=== PATIENT | male | born 1960 | race Two or more races ===

== ENCOUNTER 2018-10-30 18:08 | Emergency (ER) | payer SELFPAY ==
[~2018-10-30] VITALS: Ht 162.6 cm; Wt 80.7 kg
[2018-10-30 18:30] VITALS: BP 129/68
[2018-10-30] MEDS ORDERED: LIDOCAINE W/ EPINEPHRINE 1 % INJ 30ML ONE (20:57)
[2018-10-30] MEDS ORDERED: cefTRIAXone SOD 1,000 MG VL IM ONE (21:15)
[2018-10-30] MEDS ORDERED: ACETAMINOPHEN/CODEINE#3 (300/30mg) TAB PO ONE (21:15)
[2018-10-30] MEDS ORDERED: TETANUS-DIPTH-ACEL PERTUSSIS 0.5ML SYRG IM ONE (21:15)
== END 2018-10-30 21:28 | disposition home or self-care (01) ==
LOC: ER 18:08
DX: S01.81XA Laceration without foreign body of other part of head, initial encounter (principal); W01.0XXA Fall on same level from slipping, tripping and stumbling without subsequent striking against object, initial encounter; Y93.89 Activity, other specified; Y99.8 Other external cause status; Y92.89 Other specified places as the place of occurrence of the external cause
CPT/HCPCS: 12013; 70450; 73080; 90471; 90715; 96372; 99284; J0696; J2001